=== PATIENT | male | born 1990 | race Caucasian/White ===

== ENCOUNTER 2018-09-26 02:13 | Emergency (ER) | payer MEDICAID, OTHER ==
[~2018-09-26] VITALS: Ht 185.4 cm; Wt 76.2 kg
[~2018-09-26 02:13] MED LIST: DIPH25CA83 PO; HYDR28CR28 TP; SULF1TAB47 PO
--- NOTE | 2018-09-26 02:35 | NUR ---
PATIENT WAS MSE BY DR MCDERMOTT IN ROOM 01A.
--- NOTE | 2018-09-26 02:42 | NUR ---
Patient discharged to home in stable conditon. Written and verbal after care instructions given. Patient verbalizes understanding of instructions.
[2018-09-26 03:10] VITALS: BP 115/70
== END 2018-09-26 03:10 | disposition home or self-care (01) ==
LOC: ER 02:19
DX: R13.19 Other dysphagia (principal); Z79.899 Other long term (current) drug therapy
CPT/HCPCS: A4663